=== PATIENT | male | born 2000 | race Caucasian/White ===

== ENCOUNTER → 2021-03-20 | Outpatient (CLI) | payer OTHER ==
[~2021-03-20] MED LIST: ALBU90OI INH; ALBU90OI61 INH; AZIT250 PO; Bactrim Ds Tab1 EACH PO; Keflex500 MG PO; Norco 5-325 Ta1 EACH PO; PRED20 PO; Zithromax250 MG PO
== END | disposition home or self-care (01) ==
LOC: LAB SHORT 15:56
DX: J02.9 Acute pharyngitis, unspecified (principal)
CPT/HCPCS: 87081